=== PATIENT | female | born 1985 | race Caucasian/White ===

== ENCOUNTER 2022-08-14 00:47 | Day surgery (SDC) | payer OTHER, SELFPAY ==
[2022-08-06 14:49] VITALS: BMI 21.0
--- NOTE | 2022-08-06 14:51 | SUR.PREOP ---
Report to the Outpatient Waiting Room, entrance under the green pavilion located off [facility], at time __0600 on date _08/14/22 . Planned Procedure Time: _07 . Time changes happen often and if your time is changed the preop area will call you the afternoon before. - You and your visitor will be asked to self-screen and do not enter if you have any COVID symptoms. - We encourage only one visitor and NO visitors under age 16 are allowed at this time. Your visitor will receive communication by the phone number that is given day of service. - The patient visitor is requested to social distance or may leave the building when not with patient due to restrictions. - A mask is required within the hospital. Patients may have clear liquids (water, carbonated beverages, clear teas, apple juice) until 3 hours prior to surgery with a maximum of 20 ounces. - No food from midnight until time of surgery - Infants may have breast milk until 4 hours before surgery, formula 6 hours prior to surgery. - Children will be allowed to drink immediately following surgery. If applicable, please bring a bottle or sippy cup to assist with drinking. Juice, water, soda, and popsicles are readily available. For infants on formula, please bring formula the day of surgery. Pacifiers are allowed. Take the following medications with a SIP of water the morning of surgery: _lorazapam Medications to discontinue per physician vitamin Date to take last dose___08/11/22 Please no make-up, nail maori, hairspray, perfume, deodorant, or body powder the day of surgery. No jewelry (including any body piercings) or valuables the day of surgery, leave them at home. Please take a shower or bath the night before, or the morning of, surgery with an antibacterial soap. Wear comfortable, loose fitting clothing. Children are encouraged to wear pajamas. - Jewelry must be removed prior to entering the operating room. Rings and piercings that are not removed may be cut off. - The hospital will not accept responsibility for valuables. - Please leave all valuables, including medications, at home the day of surgery. If you are going home after surgery, a licensed waste collection driver must drive you home. - NO public transportation without another adult. - We recommend that an adult stay with you for 24 hours following discharge. - We also recommend that you do not drive, make important decision, drink alcoholic beverages, or take any drugs that were not prescribed by your health care provider for at least 24 hours after your discharge time. For Pediatric surgeries, we recommend two adults accompany the child home. Follow any additional instructions given to you from your surgeon. If you or anyone in your household have experienced Covid symptoms in the past week, please notify your surgeon or the nurse liaison at the phone number below for possible testing. Telephone instructions given to navi washington and asked if any additional questions and then verbalized understanding. Patient advised to call surgeon office or pre surgery nurse liaison [phone] if any additional questions.
--- NOTE | 2022-08-13 14:38 | WPDANESEPPF ---
Anes - Initial Pre Proc Eval Procedure: Operation Date: 08/14/22 07:30 Proposed Procedures p Bilateral Breast Augmentation with Mastopexy - Ever Casanova MD Date/Time: 08/13/22 14:38 Surgeon: Ever Casanova MD Pre Op Diagnosis: micromastia,breast ptosis Patient Data Age: 37 Gender: F Height: 1.57 m Weight: 52.27 kg Allergies Allergy/AdvReac Type Severity Reaction Status Date / Time morphine AdvReac Mild Flushing Verified 08/06/22 14:23 Home Medications Medication Instructions Recorded Confirmed Type ascorbate calcium (vitamin C) 500 500 mg PO DAILY 04/03/22 08/06/22 History mg tablet cetirizine 10 mg capsule (Zyrtec) 10 mg PO DAILY PRN Cold Symptoms 04/03/22 08/06/22 History doxylamine succinate 25 mg tablet 25 mg PO QHS 04/03/22 08/06/22 History lisdexamfetamine 70 mg capsule 70 mg PO DAILY 04/03/22 08/06/22 History (Vyvanse) lorazepam 0.5 mg tablet 0.5 mg PO DAILY 04/03/22 08/06/22 History mesalamine 1.2 gram tablet,delayed 2.4 g PO DAILY 04/03/22 08/06/22 History release (Lialda) topiramate 25 mg tablet 25 mg PO DAILY 04/03/22 08/06/22 History Patient hx anesthesia problems: none Family hx anesthesia problems: none Results Review: All pre-operative results and documents have been reviewed as part of the pre-operative evaluation. [facility] Past Medical History Medical History (Updated 08/13/22 @ 14:41 by Tanner Child MD) History of open sigmoidectomy Ulcerative colitis Social History Social History (Updated 04/03/22 @ 08:58 by Avril Mariee) Smoking status: Never smoker Alcohol intake: current Drinks per week: 4 Spiritual care concerns: No Anes - Eval Final PreProcedure Day of Procedure 08/13/22 14:38 Patient weight: normal Heart: regular rate and rhythm Lungs: clear to auscultation and normal air movement Airway: Mallampati scale class II Neurological: alert and oriented Last oral intake: >/= 8 hours ASA classification: II Emergent: no Anesthetic plan: proceed Anesthesia type and monitoring: general LMA Results Review: All pre-operative results and documents have been reviewed as part of the pre-operative evaluation. Informed Consent: The patient's anesthetic plan and its attendant risks and benefits were discussed with the patient/family/POA. Questions were solicited and answers provided to the satisfaction of the patient/family/POA.
[2022-08-14] VITALS (10 sets, daily range): BP systolic 85–104; BP diastolic 53–77; PULSE 49–73; RESP 12–18; TEMP 36.4–36.9; O2SAT 94–100
[2022-08-14] MEDS: LACTATED RINGERS 1,000 ML 30 ML IV CONT ×2 (06:30→09:36)
--- NOTE | 2022-08-14 07:03 | WPDHPUPDATE1 ---
History and Physical Update Update Date/Time: 08/14/22 07:03 History and Physical has been reviewed, including an updated exam of the patient. There are NO changes in the patient's condition. Risks, benefits, and alternatives have been discussed and questions answered. Patient agrees to proceed with procedure.
[2022-08-14 07:11] LABS: Urine Cotinine NEGATIVE
--- NOTE | 2022-08-14 07:21 | P.OP_ITS ---
Procedure Note - Detailed Date of Procedure 08/14/22 Pre-op Diagnosis micromastia,breast ptosis Post-op Diagnosis Same Procedure Performed Bilateral augmentation mastopexy Surgeon Ever Casanova MD Anesthesia General Findings Inverted T Superior pedicle Bilateral Kali Machado SoftTouch 375cc Right REF# [id number] SN [id number] Left REF# [id number] SN [id number] Description of Procedure She is here today for bilateral breast augmentation mastopexy. Previously and again today the risks, benefits, alternatives were discussed in extensive detail. I wanted her to be very realistic about the risks involved as well as expectations. Again today we spent extensive time reviewing her implant choice and goals. We discussed aftercare and what to monitor for. Made sure answered all of her questions to her satisfaction today and consent was obtained. Marked in the preoperative holding area with their verification. The patient was taken to the operating room placed supine on the operating table. Anesthesia was provided by anesthesiology. A surgical time-out was taken. We cleansed the skin and 1% lidocaine and 0.25% Marcaine with epinephrine was used anesthetize as a field block. She was prepped and draped in a standard sterile fashion. Tegaderm nipple Loza were placed. A 15 blade used to make an incision just superior to the inframammary fold leaving a cusp of de-epithelized tissue at the t junction. Dissection was continued until the chest wall as identified. I incised the pectoralis major along its inferior border and completely released the inferior border leaving the medial border intact. I created a subpectoral pocket in the appropriate dimensions based on our preoperative planning for the implant. I then copiously irrigated with saline solution and verified a strict hemostasis. Next the use a triple antibiotic and Betadine containing solution to irrigate the pocket. I washed my gloves with the triple antibiotic and Betadine solution. We washed the implant immediately upon opening it with this solution and only opened it when we needed it. I used implant funnel and no-touch technique. The implant was introduced into the pocket using the funnel. Having verified positioning of the implant this was closed using 2-0 Vicryl. I tailor tacked the breast into position. Placed her in a sitting position. Verified the nipple-areolar location based on preoperative planning as well as intraoperative observations and measurements in full agreement. She was placed supine. I de-epithelialized the pedicle. I then removed the inferior central portion of the breast need making sure the implant was well protected. I cuco vated medial and lateral tissue flaps as well for planned closure. I closed along the IMF with 2-0 Stratafix. Along the vertical with 2-0 PDS. I closed around the Adiel with 3-0 strata fix. 3-0 Monocryl along the vertical. 3-0 Stratafix along the IMF. I finally closed everything with running subcuticular 4-0 Monocryl and tissue glue. Fluffs and surgical bra were placed. Estimated Blood Loss 30 Drains No Packing No Pathology None sent Complications No immediate complications Condition Stable Disposition PACU
[2022-08-14] MEDS: ceFAZolin 2 GM/D5W 50 ML 2 GM/50 ML BAG IVPB (07:30)
[2022-08-14] MEDS: SCOPOLAMINE 1.5 MG PATCH TRANSDERM (07:31)
[2022-08-14] MEDS: TRANEXAMIC ACID 1,000MG/ISO100 1,000 MG/100 ML BAG 200 MG IVPB (07:35)
[2022-08-14] MEDS: BUPIVACAINE/EPINEPHRINE 0.25% 50 ML VIAL 30 ML INFILTRATE (07:37)
[2022-08-14] MEDS: NACL 0.9% IRRIG POUR BOTTLE 900 ML, GENTAMICIN SULFATE INJ 160 MG, ceFAZolin 2 GM, POVI... IRRIGATION (07:54)
--- NOTE | 2022-08-14 08:45 | SUR.OPER ---
BILATERAL BREAST IMPLANTS [facility] 375CC RIGHT [id number] S/N, EXP 2026-09-30, LEFT S/N [id number] EXP 2026-09-30.
[2022-08-14] MEDS: fentaNYL CITRATE INJ (*CRX) 100 MCG/2 ML VIAL 25 MCG IV PUSH ×4 (09:51→10:29)
[2022-08-14] MEDS: oxyCODONE HCL (*CRX) 5 MG TAB IR PO (11:15)
[2022-08-14] MEDS: ONDANSETRON HCL ODT 4 MG TABLET PO (11:52)
== END 2022-08-14 11:55 | disposition home or self-care (01) ==
PROVIDERS: Visit Provider Surgery Plastic and Reconstructive Surgery
PROC: (CPT 19316; principal; 2022-08-14 07:30)
DX: Z41.1 Encounter for cosmetic surgery (principal); N64.82 Hypoplasia of breast; N64.81 Ptosis of breast
CPT/HCPCS: 19316; 19325; 80307; A9270; J0171; J0690; J1100; J1170; J1580; J2250; J2405; J2704; J3010; J7120